=== PATIENT | female | born 2000 | race Caucasian/White ===

== ENCOUNTER → 2024-11-23 19:12 | Day surgery (SDC) | payer SELFPAY ==
[2024-11-23] VITALS (8 sets, daily range): BP systolic 101–140; BP diastolic 41–87; BMI 26.6
[2024-11-23] MEDS: NSS 1000 IV (14:10)
[2024-11-23] MEDS: TORADOL 15 MG IV ×2 (14:10→16:59)
[2024-11-23 14:15] LABS: % Basophils 0.4 % (0-2); % Eosinophils 0.1 % (0-6); % Immature Granulocytes 0.4 % (0-0.5); % Lymphocytes 13.9 % (20.5-51.1); % Monocytes 4.4 % (1.7-9.3); % Neutrophils 80.8 % (42.2-75.2); Absolute Basophils 0.1 10^3/uL (0-0.2); Absolute Immature Granulocytes 0.1 10^3/uL (0-0.05); Absolute Lymphocytes 1.8 10^3/uL (1.2-3.4); Absolute Monocytes 0.6 10^3/uL (0.1-0.6); Absolute Neutrophils 10.4 10^3/uL (1.4-6.5); Hematocrit 36.3 % (37.0-47.0); Hemoglobin 12.2 g/dL (12.0-16.0); Mean Corp Hgb Conc. 33.6 g/dL (33.0-37.0); Mean Corpuscular Hgb 27.7 pg (27.0-31.0); Mean Corpuscular Volume 82.5 fL (81.0-99.0); Mean Platelet Volume 11.7 fL (7.4-10.4); Nucleated Red Blood Cells % 0 %; Platelet Count 250 10^3/uL (130-400); Red Cell Dist. Width 13.2 % (11.5-14.5); White Blood Cell Count 12.9 10^3/uL (4.8-10.8)
[2024-11-23 14:18] LABS: Urine Albumin Negative (Neg - Trace); Urine Bilirubin Negative (Negative); Urine Character Clear (Clear); Urine Color Yellow; Urine Glucose Negative (Negative); Urine Ketone Negative (Negative); Urine Leukocyte Negative (Negative); Urine Nitrite Negative (Negative); Urine Occult Blood Negative (Negative); Urine Urobilinogen Negative (Neg - 1+)
[2024-11-23 14:34] LABS: HCG, Serum Qualitative Screen Negative
[2024-11-23 14:38] LABS: ALT (SGPT) 24 U/L (0-35); AST (SGOT) 25 U/L (14-36); Albumin 4.9 g/dl (3.5-5.0); Alkaline Phosphatase 54 U/L (38-126); Blood Urea Nitrogen 7 mg/dl (7-17); Calcium 10.2 mg/dl (8.4-10.2); Carbon Dioxide 23 mmol/L (22-30); Chloride 108 mmol/L (98-107); Estimated Creatinine Clearance 121 ml/min; Glucose 94 mg/dl (70-99); Lipase 85 U/L (23-300); Potassium 4.1 mmol/L (3.5-5.1); Sodium 141 mmol/L (135-145); Total Bilirubin 0.7 mg/dl (0.2-1.3); Total Protein 7.8 g/dl (6.3-8.2); eGFR > 60.00
--- NOTE | 2024-11-23 16:11 | ED.GENMED ---
History of Present Illness
<DO Max Harp Last Filed: 11/23/24 16:12>
General
Chief Complaint: Abdominal Pain
Source: patient
Time Seen by Provider: 11/23/24 12:59
History of Present Illness
History of Present Illness:
24-year-old female presents to the emergency room complaint of lower abdominal pain. Patient states the pain has been present for the past day or so. Movement makes the pain worse. Patient took ibuprofen at home with minimal improvement. Patient
has nausea but no vomiting. She has had loose stool. Patient has not had any previous abdominal operations. She denies any vaginal discharge. She denies any dysuria or frequency.
Phy Exam
<Tyler Eddy DO - Last Filed: 11/23/24 16:12>
Physical Exam
Physical Exam:
General: Awake, Alert, Oriented X3. No acute distress.
Vitals: unremarkable
Head: Atraumatic
Eyes: Pupils equal, EOMI
Throat: Airway intact, no exudates
Neck: Trachea midline
Lungs: Clear and equal b/l
Heart: Regular rate, no murmurs
Abd: Soft, moderate tenderness to lower abdomen, No pulsatile mass
Neuro: Nonfocal
Skin: Warm, dry, no rash
Extremities: pulses equal b/l, no edema
Course
<Tyler Eddy DO - Last Filed: 11/23/24 16:12>
Orders/Labs/Results
Orders:
Orders
11/23/24 13:57
0.9% Sodium Chloride 1000 ml [Nss] 1,000 ml IV BOLUS
Ketorolac [Toradol] 15 mg IV NOW STA
11/23/24 13:58
Test Result ONCE
11/23/24 14:01
CT Abd/Pel (IV only)-DH only Urgent
Comment:
Reason For Exam: rlq abd pain
11/23/24 14:06
Complete Blood Count/With Diff Urgent
Comprehensive Metabolic Panel Urgent
HCG, Serum Qualitative Screen Urgent
Lipase Urgent
Urinalysis Reflex To Culture Urgent
Date Specimen was Collected: 11/23/24
Time Specimen was Collected: 14:00
11/23/24 Dinner
Regular
11/23/24 16:56
Ketorolac [Toradol] 15 mg .ROUTE .STK-MED ONE
11/23/24 16:59
Ketorolac [Toradol] 15 mg IV NOW STA
11/23/24 18:27
CefTRIAXone [Rocephin] 1,000 mg IV NOW STA
MetroNIDAZOLE 500 MG/100 ML [Flagyl 500 mg] 100 ml IV NOW
11/23/24 18:38
Piperacillin/Tazo 4.5 Gram [Zosyn] 4.5 gram in 100 ml IV NOW
11/23/24 18:41
Fentanyl Citrate/Pf [Sublimaze] 25 mcg IV [id number] PRN
HYDROmorphone [Dilaudid] 0.25 mg IV PACU-Q5MPRN PRN
HYDROmorphone [Dilaudid] 0.5 mg IV PACU-Q5MPRN PRN
Ondansetron Injectable [Zofran] 4 mg IV PACU-ONCEPRN PRN
Prochlorperazine [Compazine] 5 mg IV PACU-ONCEPRN PRN
Notify MD As Directed
Notify physician if: for SDS patients with known or suspected sleep obstructive sleep apnea, monitor in the
PACU.
Notify MD for any apneic/desaturation episodes
O2 Therapy [RESP] Urgent
Titrate/Wean O2 to maintain O2 sat greater than (%): 92
Special Instructions: -Provide supplemental oxygen to achieve O2 sat of 92% or greater.
-After 15 min, may wean O2 and discontinue if patient is able to maintain O2 sat of 92%
or greater during recovery period.
If patient is a discharge home, without oxygen therapy, notify anestheiologist if
unable to maintain O2 SAT of 92% or greater on room air for MD clearance.
11/23/24 18:44
EKG [Electrocardiogram (*1)] Urgent
Reason for Study: PreOp
EKG- Treatment ONCE
11/23/24 18:45
Normosol (Mult Electrolytes) [Normosol-R/Plasmalyte-A] 1,000 ml IV PER PROTOCOL
11/23/24 18:52
Dexamethasone Sod Phosphate [Decadron] 20 mg .ROUTE .STK-MED ONE
Lidocaine HCl/Pf [Xylocaine-Mpf 1% Vial] 50 mg .ROUTE .STK-MED ONE
Ondansetron Injectable [Zofran] 4 mg .ROUTE .STK-MED ONE
Phenylephrine HCl/0.9% NaCl [Figueroa-Synephrine] 1,000 mcg .ROUTE .STK-MED ONE
Propofol [Diprivan] 20 ml .ROUTE .STK-MED
Rocuronium Twisp [Rocuronium] 50 mg .ROUTE .STK-MED ONE
Succinylcholine Chloride [Succinylcholine] 200 mg .ROUTE .STK-MED ONE
11/23/24 18:53
Propofol [Diprivan] 20 ml .ROUTE .STK-MED
11/23/24 18:56
Morphine Sulfate 4 mg IV NOW STA
11/23/24 19:12
Fentanyl Citrate/Pf [Sublimaze] 100 mcg .ROUTE .STK-MED ONE
Midazolam HCl [Versed] 2 mg .ROUTE .STK-MED ONE
11/23/24 19:45
Metoclopramide [Reglan] 10 mg .ROUTE .STK-MED ONE
11/23/24 19:46
HYDROmorphone [Dilaudid] 1 mg .ROUTE .STK-MED ONE
11/23/24 19:47
Acetaminophen 1000MG/100Ml [Ofirmev] 1,000 mg in 100 ml .ROUTE .STK-MED
11/23/24 19:48
OR Pathology Routine
Pre-Operative Diagnosis: ACUTE APPENDICITIS
Operative Procedure: Laparoscopic Appendectomy
Surgeon: KAMI
Specimen Type: APPENDIX
11/23/24 19:55
Sugammadex Sodium [Bridion] 200 mg .ROUTE .STK-MED ONE
11/23/24 20:15
Admit Patient As Directed
Co-Sign Provider:
Level of Care: Post Proc/Surg Recovery
Assign to:: Medical/Surgical
Physician / Group: Kami / ADRIANNA
Diagnosis: Acute appendicitis
Reason for Overnight Stay: Standard of Care
Code Status As Directed
Resuscitation Status: Full Code
Normosol (Mult Electrolytes) [Normosol-R/Plasmalyte-A] 1,000 ml IV 100 mls/hr
Activity As Directed
Activity Level: Ambulate
Intake/ Output As Directed
Frequency: Per unit guidelines
Vital Signs As Directed
Frequency: Per unit guidelines
PRN Pain Medication Management As Directed
May give lesser potent ordered pain med per pt: Yes
preference::
Protocol:: Medication orders for pain may be administered in a
manner that supports deferring to patient preference
when the pt is:
- Requesting an ordered lesser potent pain medication.
Least to most potent pain medications are defined
as: acetaminophen < NSAID < tramadol < opioids
(morphine, oxycodone, hydromorphone).
- Requesting a lesser dose of the same medication IF
ORDERED.
- Requesting a less intrusive route of administration
if both routes are prescribed by the provider (PO <
IV).
11/23/24 20:16
Pneumatic Compression Sleeves As Directed
Type: Knee high
Rx Incentive Spirometry [RESP] Routine
Frequency: q1h while awake
# of times per hour: 10
DX Deep Vein Thrombosis Video Routine
11/23/24 20:17
Discharge Patient As Directed
Discharge patient after: Tolerating a diet and pain controlled
11/23/24 20:54
HYDROmorphone [Dilaudid] 0.5 mg IV Q2HPRN PRN
11/23/24 20:57
Tramadol HCl [Ultram] 50 mg PO Q6HPRN PRN
11/23/24 22:00
Ibuprofen [Motrin] 600 mg PO SDS-Q6HPRN PRN
Ondansetron Injectable [Zofran] 4 mg IV SDS-ONCEPRN PRN
Oxycodone [Roxicodone] 10 mg PO SDS-Q4HPRN PRN
11/23/24 23:00
Ketorolac [Toradol] 10 mg IV Q6HPRN PRN
11/24/24 01:30
Ondansetron Injectable [Zofran] 4 mg IV Q6HPRN PRN
11/24/24 04:00
Acetaminophen [Tylenol] 650 mg PO Q4HWA
Abnormal Lab Results
11/23/24
14:06
WBC 12.9 H 10^3/uL
(4.8-10.8)
Hct 36.3 L %
(37.0-47.0)
MPV 11.7 H fL
(7.4-10.4)
Abs Immat Gran (auto) 0.1 H 10^3/uL
(0-0.05)
Absolute Neuts (auto) 10.4 H 10^3/uL
(1.4-6.5)
Neutrophils % 80.8 H %
(42.2-75.2)
Lymphocytes % 13.9 L %
(20.5-51.1)
Chloride 108 H mmol/L
(98-107)
Creatinine 0.5 L mg/dL
(0.6-1.0)
11/23/24 14:06
11/23/24 14:06
Vital Signs
Initial and Last Documented VS:
Initial Vital Signs
Temp Pulse Resp BP Pulse Ox
97.9 F 103 20 136/87 96
11/23/24 12:21 11/23/24 12:21 11/23/24 12:21 11/23/24 12:21 11/23/24 12:21
Last Documented Vital Signs
Temp Pulse Resp BP Pulse Ox
98.2 F 91 12 140/74 96
11/23/24 21:11 11/23/24 21:20 11/23/24 21:20 11/23/24 21:26 11/23/24 21:20
<Serena Starr, DO - Last Filed: 11/23/24 22:49>
Orders/Labs/Results
Orders:
Orders
11/23/24 13:57
0.9% Sodium Chloride 1000 ml [Nss] 1,000 ml IV BOLUS
Ketorolac [Toradol] 15 mg IV NOW STA
11/23/24 13:58
Test Result ONCE
11/23/24 14:01
CT Abd/Pel (IV only)-DH only Urgent
Comment:
Reason For Exam: rlq abd pain
11/23/24 14:06
Complete Blood Count/With Diff Urgent
Comprehensive Metabolic Panel Urgent
HCG, Serum Qualitative Screen Urgent
Lipase Urgent
Urinalysis Reflex To Culture Urgent
Date Specimen was Collected: 11/23/24
Time Specimen was Collected: 14:00
11/23/24 Dinner
Regular
11/23/24 16:56
Ketorolac [Toradol] 15 mg .ROUTE .STK-MED ONE
11/23/24 16:59
Ketorolac [Toradol] 15 mg IV NOW STA
11/23/24 18:27
CefTRIAXone [Rocephin] 1,000 mg IV NOW STA
MetroNIDAZOLE 500 MG/100 ML [Flagyl 500 mg] 100 ml IV NOW
11/23/24 18:38
Piperacillin/Tazo 4.5 Gram [Zosyn] 4.5 gram in 100 ml IV NOW
11/23/24 18:41
Fentanyl Citrate/Pf [Sublimaze] 25 mcg IV [id number] PRN
HYDROmorphone [Dilaudid] 0.25 mg IV PACU-Q5MPRN PRN
HYDROmorphone [Dilaudid] 0.5 mg IV PACU-Q5MPRN PRN
Ondansetron Injectable [Zofran] 4 mg IV PACU-ONCEPRN PRN
Prochlorperazine [Compazine] 5 mg IV PACU-ONCEPRN PRN
Notify MD As Directed
Notify physician if: for SDS patients with known or suspected sleep obstructive sleep apnea, monitor in the
PACU.
Notify MD for any apneic/desaturation episodes
O2 Therapy [RESP] Urgent
Titrate/Wean O2 to maintain O2 sat greater than (%): 92
Special Instructions: -Provide supplemental oxygen to achieve O2 sat of 92% or greater.
-After 15 min, may wean O2 and discontinue if patient is able to maintain O2 sat of 92%
or greater during recovery period.
If patient is a discharge home, without oxygen therapy, notify anestheiologist if
unable to maintain O2 SAT of 92% or greater on room air for MD clearance.
11/23/24 18:44
EKG [Electrocardiogram (*1)] Urgent
Reason for Study: PreOp
EKG- Treatment ONCE
11/23/24 18:45
Normosol (Mult Electrolytes) [Normosol-R/Plasmalyte-A] 1,000 ml IV PER PROTOCOL
11/23/24 18:52
Dexamethasone Sod Phosphate [Decadron] 20 mg .ROUTE .STK-MED ONE
Lidocaine HCl/Pf [Xylocaine-Mpf 1% Vial] 50 mg .ROUTE .STK-MED ONE
Ondansetron Injectable [Zofran] 4 mg .ROUTE .STK-MED ONE
Phenylephrine HCl/0.9% NaCl [Figueroa-Synephrine] 1,000 mcg .ROUTE .STK-MED ONE
Propofol [Diprivan] 20 ml .ROUTE .STK-MED
Rocuronium Twisp [Rocuronium] 50 mg .ROUTE .STK-MED ONE
Succinylcholine Chloride [Succinylcholine] 200 mg .ROUTE .STK-MED ONE
11/23/24 18:53
Propofol [Diprivan] 20 ml .ROUTE .STK-MED
11/23/24 18:56
Morphine Sulfate 4 mg IV NOW STA
11/23/24 19:12
Fentanyl Citrate/Pf [Sublimaze] 100 mcg .ROUTE .STK-MED ONE
Midazolam HCl [Versed] 2 mg .ROUTE .STK-MED ONE
11/23/24 19:45
Metoclopramide [Reglan] 10 mg .ROUTE .STK-MED ONE
11/23/24 19:46
HYDROmorphone [Dilaudid] 1 mg .ROUTE .STK-MED ONE
11/23/24 19:47
Acetaminophen 1000MG/100Ml [Ofirmev] 1,000 mg in 100 ml .ROUTE .STK-MED
11/23/24 19:48
OR Pathology Routine
Pre-Operative Diagnosis: ACUTE APPENDICITIS
Operative Procedure: Laparoscopic Appendectomy
Surgeon: KAMI
Specimen Type: APPENDIX
11/23/24 19:55
Sugammadex Sodium [Bridion] 200 mg .ROUTE .STK-MED ONE
11/23/24 20:15
Admit Patient As Directed
Co-Sign Provider:
Level of Care: Post Proc/Surg Recovery
Assign to:: Medical/Surgical
Physician / Group: Kami / ADRIANNA
Diagnosis: Acute appendicitis
Reason for Overnight Stay: Standard of Care
Code Status As Directed
Resuscitation Status: Full Code
Normosol (Mult Electrolytes) [Normosol-R/Plasmalyte-A] 1,000 ml IV 100 mls/hr
Activity As Directed
Activity Level: Ambulate
Intake/ Output As Directed
Frequency: Per unit guidelines
Vital Signs As Directed
Frequency: Per unit guidelines
PRN Pain Medication Management As Directed
May give lesser potent ordered pain med per pt: Yes
preference::
Protocol:: Medication orders for pain may be administered in a
manner that supports deferring to patient preference
when the pt is:
- Requesting an ordered lesser potent pain medication.
Least to most potent pain medications are defined
as: acetaminophen < NSAID < tramadol < opioids
(morphine, oxycodone, hydromorphone).
- Requesting a lesser dose of the same medication IF
ORDERED.
- Requesting a less intrusive route of administration
if both routes are prescribed by the provider (PO <
IV).
11/23/24 20:16
Pneumatic Compression Sleeves As Directed
Type: Knee high
Rx Incentive Spirometry [RESP] Routine
Frequency: q1h while awake
# of times per hour: 10
DX Deep Vein Thrombosis Video Routine
11/23/24 20:17
Discharge Patient As Directed
Discharge patient after: Tolerating a diet and pain controlled
11/23/24 20:54
HYDROmorphone [Dilaudid] 0.5 mg IV Q2HPRN PRN
11/23/24 20:57
Tramadol HCl [Ultram] 50 mg PO Q6HPRN PRN
11/23/24 22:00
Ibuprofen [Motrin] 600 mg PO SDS-Q6HPRN PRN
Ondansetron Injectable [Zofran] 4 mg IV SDS-ONCEPRN PRN
Oxycodone [Roxicodone] 10 mg PO SDS-Q4HPRN PRN
11/23/24 23:00
Ketorolac [Toradol] 10 mg IV Q6HPRN PRN
11/24/24 01:30
Ondansetron Injectable [Zofran] 4 mg IV Q6HPRN PRN
11/24/24 04:00
Acetaminophen [Tylenol] 650 mg PO Q4HWA
Abnormal Lab Results
11/23/24
14:06
WBC 12.9 H 10^3/uL
(4.8-10.8)
Hct 36.3 L %
(37.0-47.0)
MPV 11.7 H fL
(7.4-10.4)
Abs Immat Gran (auto) 0.1 H 10^3/uL
(0-0.05)
Absolute Neuts (auto) 10.4 H 10^3/uL
(1.4-6.5)
Neutrophils % 80.8 H %
(42.2-75.2)
Lymphocytes % 13.9 L %
(20.5-51.1)
Chloride 108 H mmol/L
(98-107)
Creatinine 0.5 L mg/dL
(0.6-1.0)
11/23/24 14:06
11/23/24 14:06
Vital Signs
Initial and Last Documented VS:
Initial Vital Signs
Temp Pulse Resp BP Pulse Ox
97.9 F 103 20 136/87 96
11/23/24 12:21 11/23/24 12:21 11/23/24 12:21 11/23/24 12:21 11/23/24 12:21
Last Documented Vital Signs
Temp Pulse Resp BP Pulse Ox
98.2 F 91 12 140/74 96
11/23/24 21:11 11/23/24 21:20 11/23/24 21:20 11/23/24 21:26 11/23/24 21:20
<Tyler Eddy DO - Last Filed: 11/23/24 16:12>
*Pulse Oximetry
SaO2: 96
<Serena Starr DO - Last Filed: 11/23/24 22:49>
*Critical Care Note
Total Time (30-74mins, 75-104mins- exclusive of procedures): Not Applicable
<Serena Starr DO - Last Filed: 11/23/24 22:49>
Update Note
Update Note:
Attending Sign Out Note (Serena Starr DO)
17:00 -assuming care of patient who presented to the emergency department for right-sided lower abdominal pain. Does note some diarrhea. Hemodynamically stable in the emergency department, noted to have reproducible tenderness on exam. Mild
elevation of white blood cell count. Pending CT imaging of the abdomen and pelvis.
18:30 -CT shows uncomplicated acute appendicitis. Surgery made aware.
ED Attending Note
<Tyler Eddy DO - Last Filed: 11/23/24 16:12>
-
Portions of this chart may have been created with voice recognition software.� Occasional wrong word or��sound alike� substitutions may have occurred due to the inherent limitations of voice recognition software.
Discharge Plan
Departure
Patient Disposition: OR
Date of Disposition: 11/23/24
Time of Disposition: 18:40
Presentation/result/management discussed w/ accepting MD/DO: melvin
Patient with high blood pressure during this ER visit?: No
Condition: Good
Discharge Problem:
Acute appendicitis
Interventions
Interventions:
*Risk Screen - Suicide Last Done: 11/23/24 14:12
*General Assessment Last Done: 11/23/24 12:21
*Neglect/Abuse Screening Last Done: 11/23/24 14:12
*ED- Fall Risk Assessment Last Done: 11/23/24 14:12
*ED COVID-19 Vaccine History Last Done: 11/23/24 14:12
*Nursing Disposition Last Done: 11/23/24 19:10
OB-Vhqetc-Nflsxslyaa Assessment Last Done: 11/23/24 14:14
Discharge Date and Time
Discharge Date/Time: 11/23/24 19:12
[2024-11-23] MEDS: ZOSYN 100 IV (18:45)
--- NOTE | 2024-11-23 19:00 | CON.GS ---
Consultation
-
Date/Time Consultation Requested: See order in [facility]
Date/Time Consultation Performed: See time stamp on note
Medical History
-
Chief Complaint: RLQ pain
History of Present Illness:
Patient is a 24 yo F with a PMH of GERD who presents with approximately 24 hours of RLQ abdominal pain. She states her pain began acutely yesterday at approximately 2 AM. Associated nausea and some vomiting. Associated chills. She denies any
fevers. She does report a history of increased frequency of urination over the past several weeks. She denies any abnormal menses. She does report some diarrhea. She denies any chronic GI issues. No family history of IBD or colon cancers.
Past Medical History
Past Medical History: GERD
Past Surgical History: None
Social History
Tobacco: Non-Smoker
Alcohol: Occasional (Infrequent)
Drug: None
Employment: Employed (Works at a day care)
Family History
Family History: Reviewed & Not Pertinent
Allergies / Home Medications
Allergy/AdvReac Type Severity Reaction Status Date / Time
No Known Allergies Allergy Unverified 11/23/24 12:21
�Medication �Instructions �Recorded �Confirmed �Type
bismuth subsalicylate 262 mg 524 mg PO DAILYPRN PRN gerd 11/23/24 11/23/24 History
tablet (Pepto-Bismol)
ibuprofen 200 mg tablet (Advil) 400 mg PO DAILYPRN PRN mild pain 11/23/24 11/23/24 History
therapeutic multivitamin 1 tab PO DAILY 11/23/24 11/23/24 History
Review of Systems
-
A 10 point review of systems was completed, and was negative except as per HPI.
Physical Exam
Vital Signs
Temp Pulse Resp BP Pulse Ox
97.9 F 76 18 128/64 98
11/23/24 16:54 11/23/24 16:54 11/23/24 16:54 11/23/24 16:54 11/23/24 16:54
11/22/24 11/23/24 11/24/24
06:59 06:59 06:59
Actual Weight 68.039 kg
Body Mass Index (BMI) 26.6
Lab Results
11/23/24 14:06
11/23/24 14:06
WBC 12.9 10^3/uL (4.8-10.8) H 11/23/24 14:06
Hgb 12.2 g/dL (12.0-16.0) 11/23/24 14:06
Hct 36.3 % (37.0-47.0) L 11/23/24 14:06
Plt Count 250 10^3/uL (130-400) 11/23/24 14:06
Abs Immat Gran (auto) 0.1 10^3/uL (0-0.05) H 11/23/24 14:06
Neutrophils % 80.8 % (42.2-75.2) H 11/23/24 14:06
Physical Exam
General: Well Developed, Well Nourished and No Apparent Distress
HEENT: Normocephalic and Anicteric
Respiratory: Non Labored Respirations
Cardiac: Regular Rhythm
GI: Soft, Non Distended, Tender (RLQ) and Other (No diffuse peritonitis)
Musculoskeletal: No Edema
Skin: Warm and Dry
Neuro: Nonfocal/Grossly Intact
Data Reviewed
-
CT Scan: Image Personally Visualized and interpreted and Report Reviewed by me
Labs: Labs Reviewed by me
Assessment / Plan
-
Patient is a 24 yo F p/w acute appendicitis
The natural history and pathophysiology of appendicitis was discussed. Anatomy was reviewed. CT scan imaging as a relates to her appendix was reviewed. Of note, there is a fluid collection within the RLQ adjacent to the bladder and uterus which
may represent a perforation with abscess formation. This collection is surrounded by bowel and does not appear amendable to IR drainage. Options for management including medical management with antibiotics versus surgical management with
appendectomy and drainage of abscess were considered and discussed. The pros and cons of both approaches was discussed. Specifically, we discussed failure of medical management and future episodes appendicitis versus surgical risks. Patient
wishes to proceed with appendectomy.
Plan for laparoscopic appendectomy. The procedure itself, as well as the risks, benefits, and alternatives was discussed. Specifically, we discussed the risks of bleeding, infection, injury to surrounding structures (bowel, bladder), staple line
leak, need for open procedure. Typical postprocedural recovery was discussed. All questions answered. Consent signed.
-- Laparoscopic appendectomy
-- NPO, IVF
-- Antibiotics: Zosyn
--- NOTE | 2024-11-23 19:30 | W.SUR.PREOP ---
Pre-Operative Surgical Note
-
I have examined this patient prior to the performance of the scheduled procedure.
The patient's condition is unchanged from the time of the current History and
Physical and the patient is able to undergo the scheduled procedure.
--- NOTE | 2024-11-23 20:18 | W.IMMPOSTOP ---
Surgical Immed Post Op Note
-
Primary Surgeon: Mejia
Assisting Surgeon: None
Pre-op Diagnosis: Acute appendicitis
Post-op Diagnosis: Acute appendicitis
Procedure Performed: Laparoscopic appendectomy
Anesthesia Type: General
Specimen / Cultures:
1. Appendix
Estimated Blood Loss: 3 cc
Complications: None
Operative Findings:
1. Acute mildly inflamed appendix, no perforation, serous reactive fluid within pelvis
2. Mesentery taken with [employer], base with lee load stapler
== END | disposition home or self-care (01) ==
LOC: EMR 12:19 → SDS 19:12
PROVIDERS: Emergency Medicine; ATTENDING PHYSICIAN Surgery; EMERGENCY PHYSICIAN Student in an Organized Health Care Education/Training Program
DX: K35.80 Unspecified acute appendicitis (principal)
CPT/HCPCS: 44970; 88304; 74177; 80053; 81003; 83690; 84703; 85025; 93005; 96365; 96375; 96376; 99285; C1776; Q9967